=== PATIENT | male | born 1980 | race Caucasian/White ===

== ENCOUNTER 2017-06-14 10:31 | Emergency (ER) | payer OTHER ==
[2017-06-14 10:40] VITALS: BMI 28.0
--- NOTE | 2017-06-14 10:56 | DR.GENAD ---
HPI - PCP Primary Care Physician: [email or web address] - HPI Comment HPI Comment: 37YR OLD WHITE MALE IN [facility] HERE IN [place] PRESENTS WITH PENILE ERECTION FOR 7 DAYS. PAIN WORSE RODAY. HAVING PROBLEM URINATING. - Complaint/Symptoms Chief Complaint Doctors Comments: PENILE ERECTION TIMES 7 DAYS. Chief Complaint:: patient stated he has had a erection for 7 days with no relief - Nurses notes reviewed Nurses Notes Review: Yes - Source History Provided: Patient, Law Enforcement - Mode of Arrival Mode of Arrival: Ambulatory - Timing Onset of Chief Complaint: 06/08/17 Came on: Suddenly - Duration Duration: Constant Duration: Days - Severity Severity: Moderate PMH - PMH Past Medical History: No Past Surgical History: Yes Surgical History: Ortho Surgery - Family History History of Family Medical Conditions: No - Social History Does patient currently use any type of tobacco product: No Have you used tobacco products in the last 12 months: No Type of Tobacco Use: None Does any household member use tobacco: No Alcohol Use: None Do you use any recreational Drugs:: No Lives With: Other Lives Where: senior living - infectious screening In the last 2 months have you had wt loss of >10#?: NO Have you had fever, night sweats or hemotysis?: No Have you traveled outside the country in the last 6 months?: No Isolation: Standard ROS - Review of Systems Constitutional: Weakness, Fatigue Eyes: No Symptoms Reported ENTM: No Symptoms Reported Respiratoy: No Symptoms Reported Cardiovascular: No Symptoms Reported Gastrointestinal/Abdominal: No Symptoms Reported Genitourinary: Other (URINARY RETENTION) Neurological: No Symptoms Reported Musculoskeletal: No Symptoms Reported Integumentary: No Symptoms Reported Hematologic/Lymphatic: No Symptoms Reported Endocrine: No Symptoms Reported All Other Systems: Reviewed and Negative PE - Vital Signs Vitals: Temperature 98.3 F Pulse Rate 105 Respiratory Rate 18 Blood Pressure 141/77 O2 Sat by Pulse Oximetry 98 - General Limitations: No Limitations General Appearance: Alert - Head Head Exam: Normal Inspection - Eyes Eye exam: Normal Appearance - ENT ENT Exam: Normal External Ear Exam External Ear Exam: Normal External Inspection TM/Canal Exam: Bilateral Effusion Nose Exam: Normal Nose Exam Mouth Exam: Normal Inspection Throat Exam: Normal Inspection - Neck Neck Exam: Normal Inspection - Chest Chest Inspection: Symmetric Chest Wall Rise - Respiratory Respiratory Exam: Normal Lung Sounds Bilat Respiratory Exam: Bilateral Clear to Auscultation - Cardiovascular Cardiovascular Exam: Regular Rate, Normal Rhythm, Normal Heart Sounds - Abdominal Exam Abdominal Exam: Normal Bowel Sounds, Soft. negative: Tenderness Abdominal Tenderness: Other (PENIS WITH FULL ERECTION. TENDER ON PALPATION.) - Extremities Extremities Exam: Normal Inspection - Back Back Exam: Normal Inspection - Neurologic Neurological Exam: Alert, Oriented X3 - Psychiatric Psychiatric Exam: Normal Affect, Normal Mood - Skin Skin Exam: Normal Color MDM - Differential Diagnosis Differential Diagnosis: PENILE ERCTION, PAIN Course - Treatment Treatment: SEE ORDERS. - Consultation Consultation Comments: PATIENT ACCEPTED BY DR. URBAN UROLOGIST AND DR.RAMAIYA VAN AT [facility] IN [facility]. SEE NURSING NOTE FOR TRANSFER INTERACTIONS - Education/Counseling Education/Counseling: Patient, Education Educated On: Treatment, Diagnosis, Needs for Follow Up ROR - Labs Reviewed Laboratory Results Reviewed?: Yes Result Diagrams: 06/14/17 11:35 06/14/17 11:35 Laboratory: WBC 10.9 X10^3/uL (3.6-10.0) H 06/14/17 11:35 RBC 4.38 X10^6/uL (4.7-6.0) L 06/14/17 11:35 Hgb 13.3 g/dL (13.5-18.0) L 06/14/17 11:35 Hct 38.4 % (42.0-54.0) L 06/14/17 11:35 MCV 87.6 fL (80.0-100.0) 06/14/17 11:35 MCH 30.4 pg (27.0-34.0) 06/14/17 11:35 MCHC 34.7 g/dL (33.0-35.0) 06/14/17 11:35 RDW 12.9 % (11.6-16.5) 06/14/17 11:35 Plt Count 330 X10^3/uL (150.0-450.0) 06/14/17 11:35 MPV 9.1 fL (7.4-11.0) 06/14/17 11:35 Neut % 66.5 % (42.0-75.0) 06/14/17 11:35 Lymph % 19.7 % (21.0-51.0) L 06/14/17 11:35 [place] % 10.4 % (0.0-13.0) 06/14/17 11:35 Eos % 2.9 % (0.9-2.9) 06/14/17 11:35 Baso % 0.5 % (0.2-1.0) 06/14/17 11:35 Neut # 7.2 x10^3/uL (2.2-4.8) H 06/14/17 11:35 Lymph # 2.1 X10^3/uL (1.3-2.9) 06/14/17 11:35 [place] # 1.1 x10^3/uL (0.3-0.8) H 06/14/17 11:35 Eos # 0.3 x10^3/uL (0.0-0.2) H 06/14/17 11:35 Baso # 0.0 X10^3/uL (0.0-0.1) 06/14/17 11:35 Absolute Nucleated RBC 0.0 /100WBC 06/14/17 11:35 Sodium 140 mmol/L (136-145) 06/14/17 11:35 Corrected Sodium TNP 06/14/17 11:35 Potassium 3.9 mmol/L (3.5-5.1) 06/14/17 11:35 Chloride 103 mmol/L (98-107) 06/14/17 11:35 Carbon Dioxide 28.6 mmol/L (21-32) 06/14/17 11:35 BUN 13 mg/dL (7-18) 06/14/17 11:35 Creatinine 0.97 mg/dL (0.70-1.30) 06/14/17 11:35 Est GFR (MDRD) Af Amer > 60 (>60) 06/14/17 11:35 Est GFR (MDRD) Non-Af > 60 (>60) 06/14/17 11:35 Glucose 95 mg/dL (65-99) 06/14/17 11:35 Calcium 8.9 mg/dL (8.5-10.1) 06/14/17 11:35 Corrected Calcium TNP 06/14/17 11:35 Total Bilirubin 0.50 mg/dL (0.2-1.0) 06/14/17 11:35 AST 15 Units/L (15-37) 06/14/17 11:35 ALT 20 Units/L (12-78) 06/14/17 11:35 Alkaline Phosphatase 78 Units/L (46-116) 06/14/17 11:35 Total Protein 7.6 g/dL (6.4-8.2) 06/14/17 11:35 Albumin 3.9 g/dL (3.4-5.0) 06/14/17 11:35 Globulin 3.7 g/dL (2.5-4.5) 06/14/17 11:35 Albumin/Globulin Ratio 1.1 Ratio (1.1-2.1) 06/14/17 11:35 - Diagnosis Discharge Problem: Priapism, Penile pain - Discharge Plan Disposition: 02 [facility] Condition: Stable - Follow ups/Referrals Follow ups/Referrals: NFD,None [Primary Care Provider] - 3 days - Instructions
[2017-06-14] MEDS ORDERED: MORPHINE SULFATE INJ 4 MG IM ONE (11:23)
[2017-06-14] MEDS ORDERED: MORPHINE SULFATE INJ 4 MG ONE (11:24)
[2017-06-14 11:44] LABS: BASOPHILS % (AUTO) 0.5 % (0.2-1.0); EOSINOPHILS # (AUTO) 0.3 x10^3/uL (0.0-0.2); EOSINOPHILS % (AUTO) 2.9 % (0.9-2.9); HEMATOCRIT 38.4 % (42.0-54.0); HEMOGLOBIN 13.3 g/dL (13.5-18.0); LYMPHOCYTES # (AUTO) 2.1 X10^3/uL (1.3-2.9); LYMPHOCYTES % (AUTO) 19.7 % (21.0-51.0); MEAN CORPUSCULAR HEMOGLOBIN 30.4 pg (27.0-34.0); MEAN CORPUSCULAR HGB CONC 34.7 g/dL (33.0-35.0); MEAN CORPUSCULAR VOLUME 87.6 fL (80.0-100.0); MEAN PLATELET VOLUME 9.1 fL (7.4-11.0); MONOCYTES # (AUTO) 1.1 x10^3/uL (0.3-0.8); MONOCYTES % (AUTO) 10.4 % (0.0-13.0); NEUTROPHILS # (AUTO) 7.2 x10^3/uL (2.2-4.8); NEUTROPHILS % (AUTO) 66.5 % (42.0-75.0); PLATELET COUNT 330 X10^3/uL (150.0-450.0); RED BLOOD COUNT 4.38 X10^6/uL (4.7-6.0); RED CELL DISTRIBUTION WIDTH 12.9 % (11.6-16.5); WHITE BLOOD COUNT 10.9 X10^3/uL (3.6-10.0)
[2017-06-14 11:57] LABS: ALANINE AMINOTRANSFERASE 20 Units/L (12-78); ALBUMIN 3.9 g/dL (3.4-5.0); ALKALINE PHOSPHATASE 78 Units/L (46-116); ASPARTATE AMINO TRANSFERASE 15 Units/L (15-37); BLOOD UREA NITROGEN 13 mg/dL (7-18); CALCIUM 8.9 mg/dL (8.5-10.1); CARBON DIOXIDE 28.6 mmol/L (21-32); CHLORIDE 103 mmol/L (98-107); CREATININE 0.97 mg/dL (0.70-1.30); SODIUM 140 mmol/L (136-145); TOTAL PROTEIN 7.6 g/dL (6.4-8.2); eGFR BLACK RACES > 60 (>60); eGFR NON BLACK RACES > 60 (>60)
[2017-06-14] MEDS ORDERED: NS 1/2 1000 ML IV 1,000 ML IV ONE (13:50)
[2017-06-14] MEDS ORDERED: NS 1000 ML 1,000 ML IV SCH (14:00)
[2017-06-14] MEDS ORDERED: DILAUDID INJ IVP ONE (14:12)
[2017-06-14] MEDS ORDERED: DILAUDID INJ ONE (14:13)
[2017-06-14 14:25] VITALS: BP 128/86
== END 2017-06-14 14:27 | disposition short-term general hospital (02) ==
LOC: ER 10:36
DX: N48.30 Priapism, unspecified (principal); N48.89 Other specified disorders of penis
CPT/HCPCS: 36415; 80053; 85025; 96365; 96374; 96375; 99282; 99285; A4222; J1170; J2270